=== PATIENT | female | born 1940 | race Caucasian/White ===

== ENCOUNTER 2016-06-13 12:48 | Emergency (ER) | payer MEDICARE ==
--- NOTE | ~2016-06-13 | CT2 ---
[facility] A Service of [facility] RADIOLOGY TEXT RESULTS PATIENT: PADILLA ESTES LOCATION: [facility] : 42 UNIT #: [id number] AGE: [address]: Deepthi Farah MD SEX: F ORDER DR: [id number] [facility] [address] [place], [place] [address] [id number] E MR#: [id number] Acc #: [id number] NAME: PADILLA ESTES : 1940 SEX: F STUDY DATE/TIME: 06/13/2016 14:10 UNIT: [facility] ROOM: STUDY DESCRIPTION: CT Abd and Pelv W Cont Attending Physician: Deepthi Farah M.D. Ordering Physician: Deepthi Farah M.D. Primary Care Physician: Mandy Roth A.P.R.N. MEDICAL IMAGING REPORT This report is preliminary unless electronic signature is present EXAM CT of the abdomen and pelvis with contrast. INDICATION Right flank pain and nausea since yesterday. TECHNIQUE CT of the abdomen and pelvis was performed following the administration of IV contrast. Coronal and sagittal reformatted images were obtained. This CT exam was performed with one or more of the following radiation dose reduction techniques: automatic exposure control, adjustment of mA and/or kV according to patient size, and iterative reconstruction. COMPARISON STUDIES Comparison is made with 02/16/2015. FINDINGS The lung bases are clear. There is a moderate-sized hiatal hernia. The liver, gallbladder, and spleen are unremarkable. The kidneys, adrenal glands, and pancreas are unremarkable. PELVIS: Sigmoid diverticulosis. There is no evidence for diverticulitis. The appendix is normal. There is no free fluid. Calcified uterine fibroid. 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 IMPRESSION 1. No acute intraabdominal or pelvic abnormality. 2. Sigmoid diverticulosis without evidence of diverticulitis. 3. Normal appendix. [facility] A Service of [facility] RADIOLOGY TEXT RESULTS PATIENT: PADILLA ESTES LOCATION: [facility] : 42 UNIT #: [id number] AGE: [address]: Deepthi Farah MD SEX: F ORDER DR: Dictated by... Kermit Barragan M.D. THIS IS AN ELECTRONICALLY VERIFIED REPORT Kermit Barragan M.D. at 06/13/2016 5:09 PM BINA/camelia TD: 06/13/2016 16:45 JOB #: [id number] MEDICAL IMAGING REPORT Page 1 of 1 COPY
--- NOTE | ~2016-06-13 | CR72 ---
[facility] A Service of [facility] RADIOLOGY TEXT RESULTS PATIENT: PADILLA ESTES LOCATION: [facility] : 41 UNIT #: [id number] AGE: [address]: Deepthi Farah MD SEX: F ORDER DR: [id number] [facility] [address] [place], [place] [address] [id number] E MR#: [id number] Acc #: [id number] NAME: PADILLA ESTES. : 1940 SEX: F STUDY DATE/TIME: 06/13/2016 12:15 UNIT: [facility] ROOM: STUDY DESCRIPTION: CR Chest Single View Portable Attending Physician: Deepthi Farah M.D. Ordering Physician: Deepthi Farah M.D. Primary Care Physician: Mandy Roth A.P.R.N. MEDICAL IMAGING REPORT This report is preliminary unless electronic signature is present EXAM Chest portable 06/13/2016 1215 hours HISTORY 76-year-old woman complaining of right lower rib pain for 10 days. Shortness of air. History of diabetes. Patient fell 10 days ago. COMPARISON 01/17/2008. FINDINGS Portable upright chest demonstrates normal cardiac size. The mediastinal and hilar contours are normal. There is stable benign calcified granulomata. There is mild vascular crowding at the medial right lung base. There is no acute pulmonary density or pleural effusion. There is no pneumothorax. This limited view of the right ribs demonstrates no definite rib fracture. IMPRESSION Slightly low lung volumes with no acute cardiopulmonary findings. There is no pleural effusion, pneumothorax. No rib fracture is seen on this single portable view of the chest. Dictated by... Kaykay Goodson M.D. THIS IS AN ELECTRONICALLY VERIFIED REPORT Kaykay Goodson M.D. at 06/13/2016 7:02 PM FUENTES/bong TD: 06/13/2016 13:30 JOB #: [id number] [facility] A Service of [facility] RADIOLOGY TEXT RESULTS PATIENT: PADILLA ESTES LOCATION: [facility] [place] #: [id number] : 42 UNIT #: [id number] AGE: [address]: Deepthi Farah MD SEX: F ORDER DR: MEDICAL IMAGING REPORT Page 1 of 1 COPY
[2016-06-13 12:18] LABS: URINE SOURCE CLEAN CATCH
[2016-06-13 12:21] LABS: URINE APPEARANCE CLEAR; URINE BILIRUBIN NEG (NEG); URINE BLOOD NEG (NEG); URINE COLOR YELLOW; URINE GLUCOSE NEG (NEG); URINE KETONE NEG (NEG); URINE LEUKOCYTE ESTERASE 1+ (NEG); URINE NITRATE NEG (NEG); URINE PROTEIN NEG (NEG); URINE SPECIFIC GRAVITY 1.014 (1.003-1.035); URINE UROBILINOGEN 0.2 MG/DL (NEG)
[2016-06-13 12:22] LABS: BASOPHIL# 0.1 X10e3 (0-0.3); BASOPHIL% 0.6 % (0-2.5); EOSINOPHIL# 0.1 X10e3 (0-0.7); EOSINOPHIL% 0.5 % (0.0-7.0); HEMATOCRIT 39.5 % (35.0-45.0); HEMOGLOBIN 12.3 gm/dL (12.0-16.0); MEAN CELL VOLUME 70.3 FL (83-96); MEAN CORPUSCULAR HEMOGLOBIN 21.8 PG (28-34); MEAN CORPUSCULAR HGB CONC 31.1 g/dL (30-36); MEAN PLATELET VOLUME 6.8 FL (6.5-11.5); MONOCYTE# 0.9 X10e3 (0-1.0); MONOCYTE% 6.4 % (3.0-12.0); NEUTROPHIL# 8.7 X10e3 (1.5-7.1); NEUTROPHIL% 63.5 % (40-75); PLATELET COUNT 509 X10e3 (140-420); RED BLOOD COUNT 5.61 X10e (3.90-5.30); RED CELL DISTRIBUTION WIDTH 19.1 % (11.0-15.5); WHITE BLOOD COUNT 13.8 X10e3 (4.0-10.5)
[2016-06-13 12:24] LABS: CULTURE INDICATED? YES; U HYALINE CASTS AUWI 0-2 /[LPF]; URBCS1 AUWI 0-2 /[HPF] (0-2); URINE BACTERIA AUWI NEG (NEGATIVE); URINE SQUAMOUS EPITHELIAL CELL OCC /[HPF]
[2016-06-13 12:26] LABS: DIFF IND NO
[2016-06-13 12:34] LABS: POC - CKMB 1.4 ng/mL (0.0-7.9); POC - TROPONIN <0.05 ng/mL (<=0.05)
[~2016-06-13 12:48] MED LIST: ASPIRIN PO; ASPIRIN81 M1 PO; DICYCLOMINE HCL20 MG PO; LEVOTHYROXINE88 MCG PO; LISINOPRIL5 MG PO; LORTAB 7.5-5001 TAB PO; METFORMIN PO; OMEGA 3 FISH1 CAP.EC PO; PRILOSEC20 MG; VICODIN 5/500 T1 TAB PO
[2016-06-13 13:03] LABS: ALBUMIN SERUM 4.2 g/dL (3.5-5.0); BILIRUBIN, DIRECT 0.1 mg/dL (0.0-0.2); BILIRUBIN,TOTAL 1.1 mg/dL (0.2-2.0); BUN/CREATININE RATIO 23.33; CALCIUM SERUM 9.7 mg/dL (8.4-10.2); CREATININE SERUM 0.6 mg/dL (0.6-1.4); GLOM FILT RATE Estimated 89.2 mL/min (>60); POTASSIUM 4.4 mmol/L (3.5-5.1); PROTEIN TOTAL SERUM 8.1 g/dL (6.0-8.3)
== END 2016-06-13 15:25 | disposition home or self-care (01) ==
LOC: CED 12:48
PROVIDERS: Emergency Medicine
DX: R10.11 Right upper quadrant pain (principal); I10 Essential (primary) hypertension; E11.9 Type 2 diabetes mellitus without complications; E03.9 Hypothyroidism, unspecified; Z98.890 Other specified postprocedural states; Z88.1 Allergy status to other antibiotic agents
CPT/HCPCS: 36415; 71010; 74177; 80048; 80076; 81003; 82553; 83690; 84484; 85025; 87086; 96361; 96374; 96375; 99284; J2270; J2405; J3490; Q9967

== ENCOUNTER → 2016-06-22 | Outpatient (CLI) | payer MEDICARE ==
--- NOTE | ~2016-06-22 | NM22 ---
[facility] A Service of [facility] RADIOLOGY TEXT RESULTS PATIENT: PADILLA ESTES LOCATION: [facility] : 41 UNIT #: [id number] AGE: [address]: Mandy Roth APRN SEX: F ORDER DR: [id number] [facility] [address] [place], [place] [address] [id number] O MR#: [id number] Acc #: [id number] NAME: PADILLA ESTES : 1940 SEX: F STUDY DATE/TIME: 06/22/2016 9:08 UNIT: [facility] ROOM: STUDY DESCRIPTION: [place] Hepatobiliary W [facility] Attending Physician: Mandy Roth A.P.R.N. Referring Physician: Mandy Roth A.P.R.N. Ordering Physician: Mandy Roth A.P.R.N. Primary Care Physician: Mandy Roth A.P.R.N. MEDICAL IMAGING REPORT This report is preliminary unless electronic signature is present EXAM Hepatobiliary scan, 06/22. INDICATION Severe right upper quadrant pain after meals with bloating and nausea. Symptoms started May 2016. FINDINGS Imaging was obtained of the abdomen for 60 minutes after the IV administration of 5.1 mCi of technetium 99m-Choletec. Comparison made with CT abdomen from 06/13/2016. There is prompt uptake by the liver. Gallbladder, biliary, and small bowel activity are seen within 15 minutes. There is no evidence of acute cholecystitis or biliary obstruction. Following the IV administration of 1.6 mcg of Kinevac, gallbladder ejection fraction is normal at 68%. IMPRESSION Normal hepatobiliary scan. Normal gallbladder ejection fraction of 68% after Kinevac stimulation. Dictated by... Venkata Doe Jr., M.D. THIS IS AN ELECTRONICALLY VERIFIED REPORT Venkata Doe Jr., M.D. at 06/22/2016 7:00 PM FRANKLIN/camelia TD: 06/22/2016 12:53 JOB #: [id number] [facility] A Service of [facility] RADIOLOGY TEXT RESULTS PATIENT: PADILLA ESTES LOCATION: [facility] : 41 UNIT #: [id number] AGE: [address]: Mandy Roth APRN SEX: F ORDER DR: Page 1 of 1 COPY
== END | disposition home or self-care (01) ==
LOC: CNUC 08:20
DX: R10.11 Right upper quadrant pain (principal)
CPT/HCPCS: 78227; A9537; J2805